=== PATIENT | female | born 1965 | race Caucasian/White ===

== ENCOUNTER 2018-09-15 12:22 | Emergency (ER) | payer MEDICAID ==
[~2018-09-15] VITALS: Ht 149.9 cm; Wt 52.6 kg
[2018-09-15 12:33] VITALS: BP 114/63
[2018-09-15] MEDS ORDERED: IBUPROFEN 200 MG TABLET PO ONE (13:00)
[2018-09-15] MEDS ORDERED: IBUPROFEN 200 MG TABLET ONE (13:15)
== END 2018-09-15 13:51 | disposition home or self-care (01) ==
LOC: ED 13:48
DX: G56.01 Carpal tunnel syndrome, right upper limb (principal)
CPT/HCPCS: 29125; 99283